=== PATIENT | female | born 1990 | race Caucasian/White ===

== ENCOUNTER 2019-08-21 16:53 | Inpatient (IN) | payer OTHER ==
[~2019-08-21] VITALS: Ht 157.5 cm; Wt 77.3 kg
[2019-10-07] VITALS (16 sets, daily range): BP systolic 94–122; BP diastolic 46–561; PULSE 56–98; TEMP 97.9–98.9
--- NOTE | 2019-10-07 05:50 | NUR ---
Ambulatory to unit for scheduled repeat C/S accompanied by spouse.
--- NOTE | 2019-10-07 06:08 | NUR ---
Patient on the monitor per Ness DOS SANTOS. FHR baseline 135 bpm. 0640: FHR baseline 125-130. 0642: FHR tracing early/late deceleration noted with contractions and returns to baseline. 0745: Baseline 135bpm and patient off monitor per Dr. Mcclelland orders.
--- NOTE | 2019-10-07 06:15 | NUR ---
Report received from Ness DOS SANTOS. 7984: IV started in left hand, blood obtained and to lab, LR infusing. Assessment completed and consents gone over. plan gone over and discussed. Patient understands and agrees to plan of care. Patient updated that will be delayed to another needed at the time. Dr. Shelby disscusses times of will be moved closer to 1200. Patient agrees to plan of care.
[2019-10-07 06:46] LABS: BASO % 0.2 % (0.0-2.0); EOS # 0.2 (0.0-0.7); EOS % 1.6 % (0-4.0); GRAN # 6.9 (1.4-6.5); GRAN % 68.2 % (42.2-75.2); HEMOGLOBIN 11.3 g/dl (12.5-16.0); LYMPH % 20.3 % (20.0-51.0); MEAN CELL VOLUME 90 fl (80.0-100.0); MEAN CORPUSCULAR HEMOGLOBIN 31 pg (27.0-31.0); MEAN CORPUSCULAR HGB CONC 34 g/dl (33.0-37.0); MEAN PLATELET VOLUME 9.2 fl (7.4-10.4); MONO # 0.9 (0.1-0.6); MONO % 9.1 % (1.7-9.3); PLATELET COUNT 187 K/mm3 (130-400); RED BLOOD COUNT 3.65 M/mm3 (4.10-5.30); REDCELL DISTRIBUTION WIDTH-CV 12.7 % (11.5-14.5)
[2019-10-07 06:47] LABS: HEMATOCRIT 32.9 % (37.0-47.0)
[2019-10-07] MEDS ORDERED: VITAMIN D31000 I1 PO (08:11)
[2019-10-07] MEDS ORDERED: VITAMIN K0.1 MG (08:11)
[2019-10-07] MEDS ORDERED: VITAMINC1000TA (08:12)
--- NOTE | 2019-10-07 10:50 | NUR ---
Patient back on monitor. 1127: FHR baseline 135bpm and patient off monitor and abdomen prepped for surgery.
[2019-10-08 01:00] VITALS: BP 110/68; PULSE 78; TEMP 98.3
[2019-10-08 05:20] VITALS: BP 101/56; PULSE 84; TEMP 98.8
--- NOTE | 2019-10-08 06:57 | NUR ---
REPORT RECEIVED FROM CAMDEN ZENDEJAS RN CARE TAKEN OVER BY THIS RN.
[2019-10-08 08:27] VITALS: BP 114/64; PULSE 92; TEMP 98.2
--- NOTE | 2019-10-08 09:41 | NUR ---
Initial visit; Parents thanked Research Intern for offering congratulations and God's blessings for the of their daughter. Research Intern thanked family for choosing [place]/[facility].
[2019-10-08] MEDS ORDERED: IBU800 M1 PO (09:59)
== END 2019-10-08 16:55 | disposition home or self-care (01) | DRG 788 ==
LOC: OB 16:53
PROVIDERS: ADMIT Obstetrics & Gynecology
PROC: 10D00Z1 Extraction of Products of Conception, Low, Open Approach (ICD-10-PCS; principal; 2019-10-07)
DX: O34.211 Maternal care for low transverse scar from previous cesarean delivery (principal); Z3A.39 39 weeks gestation of pregnancy; Z37.0 Single live birth
CPT/HCPCS: J0690; J1885; J2270; J2370; J2405; J2550; J2590; J2791; J7120

== ENCOUNTER 2021-11-08 07:26 | Inpatient (IN) | payer SELFPAY ==
[~2021-11-08] VITALS: Ht 157.5 cm; Wt 84.5 kg
[~2021-11-08 07:26] MED LIST: IBU800 M1 PO; VITAMIN D31000 I1 PO; VITAMIN K0.1 MG; VITAMINC1000TA
[2021-11-09] VITALS (15 sets, daily range): BP systolic 100–116; BP diastolic 51–74; PULSE 65–97; TEMP 97.3–98
[2021-11-09] MEDS ORDERED: PRENATAL TABLET PO (09:52)
[2021-11-09 10:13] LABS: BASO % 0.2 % (0.0-2.0); EOS # 0.7 K/mm3 (0.0-0.7); EOS % 6.5 % (0.0-4.0); GRAN # 6.7 K/mm3 (1.4-6.5); GRAN % 65.2 % (42.2-75.2); HEMOGLOBIN 12.5 g/dl (12.5-16.0); LYMPH # 2.1 K/mm3 (1.2-3.4); LYMPH % 20.5 % (20.0-51.0); MEAN CELL VOLUME 89 fl (80.0-100.0); MEAN CORPUSCULAR HEMOGLOBIN 32 pg (27-31); MEAN CORPUSCULAR HGB CONC 36 g/dl (33.0-37.0); MEAN PLATELET VOLUME 8.7 fl (7.4-10.4); MONO # 0.7 K/mm3 (0.1-0.6); MONO % 7.2 % (1.7-9.3); PLATELET COUNT 186 K/mm3 (130-400); RED BLOOD COUNT 3.94 M/mm3 (4.10-5.30); REDCELL DISTRIBUTION WIDTH-CV 12.9 % (11.5-14.5)
[2021-11-09 10:14] LABS: HEMATOCRIT 35.1 % (37.0-47.0)
[2021-11-09] MEDS ORDERED: PERCOCET 325 MG1 TA2 PO (12:16)
[2021-11-09] MEDS ORDERED: MOTRIN 800800 MG/TAB PO (12:16)
--- NOTE | 2021-11-09 13:45 | NUR ---
1345- Moderate amount of bleeding noted on chux under Pt, 2 golf ball sized clots noted. Scant amount of bleeding noted with fundal massage. Pericare provided and clean chux under Pt, LEVON Carrillo assist with turning.
[2021-11-10] VITALS: BP 114/75; PULSE 77; TEMP 98.1
[2021-11-10 07:45] VITALS: BP 106/65; PULSE 80; TEMP 98.3
--- NOTE | 2021-11-10 11:10 | NUR ---
Initial visit; Patient thanked Machine Set Up Operator [employer] for offering congratulations and God's blessings for the of her daughter. Machine Set Up Operator [employer] thanked patient for choosing [place].
[2021-11-10 16:30] VITALS: BP 108/71; PULSE 84; TEMP 97.6
[2021-11-10 19:30] VITALS: BP 112/54; PULSE 78; TEMP 98.3
[2021-11-11 08:30] VITALS: BP 116/60; PULSE 86; TEMP 98.5
--- NOTE | 2021-11-11 11:30 | NUR ---
Discharge instructions and follow up care reviewed with pt and at the bedside. Both verbalized an understanding, agreed with the plan and states no questions or concerns at this time.
== END 2021-11-11 11:45 | disposition home or self-care (01) | DRG 788 ==
LOC: LDR 11-09 07:26 → OB 11-09 09:13
PROVIDERS: ADMIT Obstetrics & Gynecology
PROC: 10D00Z1 Extraction of Products of Conception, Low, Open Approach (ICD-10-PCS; principal; 2021-11-09)
DX: O34.211 Maternal care for low transverse scar from previous cesarean delivery (principal); Z3A.39 39 weeks gestation of pregnancy; Z37.0 Single live birth; O26.893 Other specified pregnancy related conditions, third trimester; Z67.11 Type A blood, Rh negative
CPT/HCPCS: J0690; J1100; J1885; J2405; J2590; J2765; J7120